=== PATIENT | female | born 1970 | race Caucasian/White ===

== ENCOUNTER 2020-09-25 09:55 | Outpatient (REF) | payer OTHER, SELFPAY | END 2020-09-25 09:56 | disposition home or self-care (01) | LOC: HO.LAB 09:55 | PROVIDERS: Visit Provider Nurse Practitioner Family | DX: Z13.9 Encounter for screening, unspecified (principal) | CPT/HCPCS: 87086 ==

== ENCOUNTER 2020-10-20 22:52 | Outpatient (REF) | payer OTHER, SELFPAY ==
[2020-10-20 23:25] LABS: COVID-19 Test Negative (Negative)
== END 2020-10-20 22:53 | disposition home or self-care (01) ==
LOC: HO.LAB 22:52
PROVIDERS: PCP Internal Medicine; Visit Provider Internal Medicine
DX: Z20.822 Contact with and (suspected) exposure to COVID-19 (principal)
CPT/HCPCS: 36415; 87635

== ENCOUNTER 2021-03-19 12:04 | Outpatient (REF) | payer OTHER, SELFPAY | END 2021-03-19 12:05 | disposition home or self-care (01) | LOC: HO.LNP 12:04 | PROVIDERS: Visit Provider Hospitalist | DX: K52.9 Noninfective gastroenteritis and colitis, unspecified (principal); Z20.822 Contact with and (suspected) exposure to COVID-19 | CPT/HCPCS: U0003; U0005 ==

== ENCOUNTER 2021-08-14 09:14 | Outpatient (REF) | payer OTHER, SELFPAY ==
[2021-08-14 11:25] LABS: MANUAL DIFF FLAG NO
[2021-08-14 11:31] LABS: Basophils Percent Auto 0.8 % (0-2); Eosinophils Absolute Auto 0.1 X10*3/uL (0.0-0.4); Eosinophils Percent Auto 2.3 % (0-4); Hematocrit 42.6 % (37-47); Hemoglobin 13.4 g/dl (12.0-16.0); Imm Gran Abs Auto 0.01 X10*3/uL (0.00-0.03); Imm Gran Pct Auto 0.2 % (0.0-0.4); Lymphocytes Absolute Auto 1.9 X10*3/uL (1.2-4.9); Lymphocytes Percent Auto 37.6 % (20-40); Mean Corpuscular HGB Conc 31.5 g/dl (31.0-35.0); Mean Corpuscular Hemoglobin 27.1 pg (27.0-33.0); Mean Corpuscular Volume 86.2 fL (80-98); Mean Platelet Volume 11.5 fL (9.4-12.3); Monocytes Absolute Auto 0.4 X10*3/uL (0.1-1.2); Monocytes Percent Auto 7.9 % (2-11); Neutrophils Absolute Auto 2.6 X10*3/uL (2.0-8.3); Neutrophils Percent Auto 51.2 % (45-73); Platelet Count 267 X10*3/uL (160-400); Red Blood Count 4.94 X10*6/uL (4.20-5.50); Red Cell Distribution Width 12.6 % (11.0-16.0); White Blood Count 5.2 X10*3/uL (4.8-10.8)
[2021-08-14 11:57] LABS: Alanine Aminotransferase 9 U/L (0-31); Albumin Level 4.2 g/dL (3.5-5.0); Alkaline Phosphatase 70 U/L (39-117); Anion Gap 9 (12-20); Aspartate Amino Transferase 16 U/L (5-31); Bilirubin Total 0.4 mg/dL (0.0-1.0); Blood Urea Nitrogen 15 mg/dL (9-16); Calcium 9.5 mg/dL (8.4-10.2); Carbon Dioxide 29 mmol/L (22-29); Chloride 105 mmol/L (96-108); Estimated Glomerular Filt Rate > 60; Glucose Random 69 mg/dL (60-115); Potassium 4.3 mmol/L (3.3-5.1); Sodium 139 mmol/L (135-145)
[2021-08-15 09:46] LABS: LDL Cholesterol Direct 132 mg/dL (<100)
== END 2021-08-14 09:15 | disposition home or self-care (01) ==
LOC: HO.HMGCLDS 09:14
PROVIDERS: PCP Internal Medicine; Visit Provider Internal Medicine
DX: F33.9 Major depressive disorder, recurrent, unspecified (principal); F41.1 Generalized anxiety disorder
CPT/HCPCS: 36415; 80053; 83721; 84443; 85025

== ENCOUNTER 2021-08-26 12:11 | Outpatient (REF) | payer OTHER, SELFPAY ==
[2021-08-28 18:17] LABS: TS Negative Control Passed; TS Panel A 0; TS Panel B 0; TS Positive Control Passed; TSpotTB Negative (Negative)
== END 2021-08-26 12:12 | disposition home or self-care (01) ==
LOC: HO.HMGCLDS 12:11
PROVIDERS: PCP Internal Medicine; Visit Provider Internal Medicine
DX: Z11.1 Encounter for screening for respiratory tuberculosis (principal)
CPT/HCPCS: 36415; 86481

== ENCOUNTER → 2022-08-05 12:11 | Outpatient (RCR) | payer OTHER, SELFPAY ==
[2020-09-01 14:02] LABS: COVID-19 Test Negative (Negative); IDNOW Serial# 55D5AD1C
[2020-09-13 09:03] LABS: COVID-19 Test Negative (Negative)
[2020-09-22 07:04] LABS: COVID-19 Test Negative (Negative)
[2020-10-08 11:54] LABS: SARS-COV-2 PCR UMBRL Not Detected
[2020-10-15 08:15] LABS: SARS-COV-2 PCR UMBRL Not Detected
== END | disposition home or self-care (01) ==
LOC: HO.EMPCOV 09-01 13:20
PROVIDERS: PCP Internal Medicine; Visit Provider Internal Medicine
DX: Z20.828 Contact with and (suspected) exposure to other viral communicable diseases (principal)
CPT/HCPCS: 87635; C9803; U0003